=== PATIENT | female | born 1980 | race American Indian/Alaskan Native ===

== ENCOUNTER 2017-09-07 16:54 | Emergency (ER) | payer OTHER ==
[2017-09-07 17:32] VITALS: TEMP 98
[2017-09-07 18:54] LABS: BASO # 0.02 K/mm3 (0.0-2.0); BASO % 0.2 % (0.0-3.0); EOS # 0.7 (0.0-0.7); EOS % 7.5 % (1.5-5.0); GRAN # 5.1 (1.4-6.5); GRAN % 53.9 % (50.0-68.0); HEMOGLOBIN 10.1 g/dL (12.0-16.0); LYMPH # 3.1 (1.2-3.4); MEAN CORPUSCULAR HEMOGLOBIN 23.7 pg (25.0-35.0); MEAN CORPUSCULAR HGB CONC 30.7 g/dl (31.0-37.0); MEAN PLATELET VOLUME 9.2 fl (7.0-11.0); MONO # 0.5 (0.1-0.6); MONO % 5.4 % (1.0-6.0); RBC 4.27 10^6/uL (3.5-6.1); RED CELL DISTRIBUTION WIDTH 15.7 % (11.5-14.5); WHITE BLOOD COUNT 9.5 10^3/ul (4.5-11.0)
[2017-09-07 19:02] LABS: ALB/GLOB RATIO 1.3 (1.1-1.8); ALBUMIN 4.3 g/dL (3.0-4.8); ALT/SGPT 31 U/L (7-56); AST/SGOT 37 U/L (14-36); BLOOD UREA NITROGEN 9 mg/dL (7-21); CALCIUM 9.2 mg/dL (8.4-10.5); GFR AFRICAN-AMERICAN > 60; GFR NON-AFRICAN AMERICAN > 60
[2017-09-07 19:12] LABS: URINE BILIRUBIN NEGATIVE (NEGATIVE); URINE BLOOD TRACE-LYSED (NEGATIVE); URINE GLUCOSE (UA) NEGATIVE (NEGATIVE); URINE LEUKOCYTE ESTERASE NEGATIVE Leu/uL (NEGATIVE); URINE PROTEIN NEGATIVE mg/dL (<30 mg/dL); URINE UROBILINOGEN 0.2 E.U./dL (<1 E.U./dL)
[2017-09-07 19:13] LABS: URINE APPEARANCE CLEAR (CLEAR); URINE COLOR YELLOW (YELLOW)
[2017-09-07 19:14] LABS: B-TYPE NATRIURETIC PEPTIDE 88.8 pg/mL (0-450); TROPONIN I < 0.01 ng/mL
[2017-09-07 19:17] LABS: URINE EPITHELIAL CELLS 0 - 2 /hpf (0-5); URINE RBC NEGATIVE /hpf (0-2); URINE WBC NEGATIVE /hpf (0-6)
--- NOTE | 2017-09-07 21:00 | ED PDOC ---
Arrival/HPI - General Chief Complaint: Shortness Of Breath Time Seen by Provider: 09/07/17 17:01 Historian: Patient - History of Present Illness Narrative History of Present Illness (Text): 09/07/17 20:57 37 year old female presents to the Emergency department from an urgent care to rule out pulmonary embolism. 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 The procedure was a same-day procedure and the patient was intubated for the duration of the procedure. Patient denies any fever, chills, cough, nausea, vomiting, diarrhea, urinary symptoms, back pain, neck pain, headache, dizziness, or any other complaints. Time/Duration: < week (2 days) Symptom Onset: Gradual Symptom Course: Unchanged Context: Other (patient came to Emergency department from urgent care) Past Medical History - Provider Review Nursing Documentation Reviewed: Yes - Infectious Disease Hx of Infectious Diseases: None - Psychiatric Hx Substance Use: No Family/Social History - Physician Review Nursing Documentation Reviewed: Yes Family/Social History: Unknown Family HX Smoking Status: Never Smoked Hx Alcohol Use: No Hx Substance Use: No Allergies/Home Meds Allergies/Adverse Reactions: Allergies acetaminophen [From Percocet] Allergy (Verified 09/07/17 17:16) VOMITING oxycodone [From Percocet] Allergy (Verified 09/07/17 17:16) VOMITING Review of Systems - Physician Review All systems were reviewed & negative as marked: Yes - Review of Systems Constitutional: absent: Fevers, Night Sweats Respiratory: SOB. absent: Cough Cardiovascular: Chest Pain Gastrointestinal: absent: Diarrhea, Nausea, Vomiting Genitourinary Female: absent: Dysuria Musculoskeletal: absent: Back Pain, Neck Pain Neurological: absent: Headache, Dizziness Physical Exam Vital Signs Reviewed: Yes Vital Signs Temp Pulse Resp BP Pulse Ox 09/07/17 21:00 66 18 145/86 100 09/07/17 17:45 20 09/07/17 17:31 98.0 F 69 18 146/81 99 Temperature: Afebrile Blood Pressure: Normal Pulse: Regular Respiratory Rate: Normal Appearance: Positive for: Well-Appearing, Non-Toxic, Comfortable Pain Distress: None Mental Status: Positive for: Alert and Oriented X 3 - Systems Exam Head: Present: Atraumatic, Normocephalic Pupils: Present: PERRL Extroacular Muscles: Present: EOMI Conjunctiva: Present: Normal Mouth: Present: Moist Mucous Membranes Neck: Present: Normal Range of Motion Respiratory/Chest: Present: Clear to Auscultation, Good Air Exchange. No: Respiratory Distress, Accessory Muscle Use Cardiovascular: Present: Regular Rate and Rhythm, Normal S1, S2. No: Murmurs Abdomen: No: Tenderness, Distention, Peritoneal Signs Back: Present: Normal Inspection Upper Extremity: Present: Normal Inspection. No: Cyanosis, Edema Lower Extremity: Present: Normal Inspection. No: Edema Neurological: Present: GCS=15, CN II-XII Intact, Speech Normal Skin: Present: Warm, Dry, Normal Color. No: Rashes Psychiatric: Present: Alert, Oriented x 3, Normal Insight, Normal Concentration Medical Decision Making ED Course and Treatment: 09/07/17 21:02 Impression: 37 year old female presents to the Emergency department complaining of chest pain and shortness of breath. Plan: -- Angio chest PE protocol CT scan -- Chest xray -- EKG -- Urinalysis -- Labs -- Reassess and disposition Progress Notes: - Lab Interpretations Lab Results: 09/07/17 18:30 09/07/17 18:30 Lab Results 09/07/17 19:04: Urine Color Yellow, Urine Appearance Clear, Urine pH 7.0, Ur Specific [place] <= 1.005, Urine Protein Negative, Urine Glucose (UA) Negative, Urine Ketones Negative, Urine Blood Trace-lysed H, Urine Nitrate Negative, Urine Bilirubin Negative, Urine Urobilinogen 0.2, Ur Leukocyte Esterase Negative , Urine RBC Negative, Urine WBC Negative, Ur Epithelial Cells 0 - 2 09/07/17 18:30: Sodium 142, Potassium 4.1, Chloride 103, Carbon Dioxide 27, Anion Gap 17, BUN 9, Creatinine 0.6 L, Est GFR ( Amer) > 60, Est GFR (Non -Af Amer) > 60, Random Glucose 88, Calcium 9.2, Magnesium 2.1, Total Bilirubin 0.2, AST 37 H, ALT 31, Alkaline Phosphatase 87, Lactate Dehydrogenase 404, Total Creatine Kinase 113, Troponin I < 0.01, NT-Pro-B Natriuret Pep 88.8, Total Protein 7.4, Albumin 4.3, Globulin 3.2, Albumin/Globulin Ratio 1.3 09/07/17 18:30: WBC 9.5, RBC 4.27, Hgb 10.1 L, Hct 32.9 L, MCV 77.0 L, MCH 23.7 L, MCHC 30.7 L, RDW 15.7 H, Plt Count 326, MPV 9.2, Gran % 53.9, Lymph % (Auto) 33.0, [place] % (Auto) 5.4, Eos % (Auto) 7.5 H, Baso % (Auto) 0.2, Gran # 5.10, Lymph # (Auto) 3.1, [place] # (Auto) 0.5, Eos # (Auto) 0.7, Baso # (Auto) 0.02 - RAD Interpretation Narrative RAD Interpretations (Text): 09/07/2017 21:34 CT Angiography Chest With Intravenous Contrast FINDINGS: Limitations: Motion artifact - mild. Pulmonary arteries: No definite pulmonary embolism. Aorta: No aneurysm. No dissection. Lungs: No consolidation. Pleural space: No significant effusion. No pneumothorax. Heart: Mild cardiomegaly. No significant pericardial effusion. Mediastinum: Small hiatal hernia. Bones/joints: No acute fracture. Soft tissues: Unremarkable. Lymph nodes: No pathologically enlarged lymph nodes. IMPRESSION: 1. No definite CT evidence of pulmonary embolism. 2. Incidental/non-acute findings are described above. Radiology Orders: 09/07/17 17:18 CHEST PORTABLE [RAD] Stat 09/07/17 17:19 ANGIO CHEST PE PROTOCOL [CT] Stat - EKG Interpretation EKG Interpretation (Text): 09/07/17 17:17 EKG: Ordered, reviewed, and independently interpreted the EKG. Rate : 72 BPM Rhythm : NSR Interpretation : RBBB. Normal axis, normal intervals. Interpreted by ED Physician: Yes Type: 12 lead EKG - Scribe Statement The provider has reviewed the documentation as recorded by the Daniela Carr Provider Scribe Attestation: All medical record entries made by the Scribkandace were at my direction and personally dictated by me. I have reviewed the chart and agree that the record accurately reflects my personal performance of the history, physical exam, medical decision making, and the department course for this patient. I have also personally directed, reviewed, and agree with the discharge instructions and disposition. Disposition/Present on Arrival - Present on Arrival Any Indicators Present on Arrival: No History of DVT/PE: No History of Uncontrolled Diabetes: No Urinary Catheter: No History of Decub. Ulcer: No History Surgical Site Infection Following: None - Disposition Have Diagnosis and Disposition been Completed?: Yes Diagnosis: Acute costochondritis Disposition Time: 21:30 Patient Problems: Current Active Problems Problem Status Onset Acute costochondritis Acute Condition: GOOD Discharge Instructions (ExitCare): Costochondritis (DC) Additional Instructions: Thank you for letting us take care of you today. The emergency medical care you received today was directed at your acute symptoms. If you were prescribed any medication, please fill it and take as directed. It may take several days for your symptoms to resolve. Return to the Emergency Department if your symptoms worsen, do not improve, or if you have any other problems. Please contact your doctor or call one of the physicians/clinics you have been referred to that are listed on the Patient Visit Information form that is included in your discharge packet. Bring any paperwork you were given at discharge with you along with any medications you are taking to your follow up visit. Our treatment cannot replace ongoing medical care by a primary care provider (PCP) outside of the emergency department. Thank you for allowing the [facility] team to be part of your care today. Follow up with your doctor in 2-3 days for re-evaluation and further management. Prescriptions: Ibuprofen [Motrin] 600 mg PO Q6 PRN #20 tab PRN Reason: Pain, Moderate (4-7) Referrals: PCP,NO [Primary Care Provider] - Follow up with primary Forms: [facility] (Sami)
--- NOTE | 2017-09-07 21:34 | CT ---
EXAM: CT Angiography Chest With Intravenous Contrast CLINICAL HISTORY: 37 years old, female; Signs and symptoms; Shortness of breath; Prior surgery; Surgery date: Post-operative (0-2 days); Surgery type: Hysteroscopy - polyp removal; Additional info: R/O pe TECHNIQUE: Axial computed tomographic angiography images of the chest with intravenous contrast using pulmonary embolism protocol. All CT scans at this facility use one or more dose reduction techniques, viz.: automated exposure control; ma/kV adjustment per patient size (including targeted exams where dose is matched to indication; i.e. head); or iterative reconstruction technique. MIP reconstructed images were created and reviewed. Coronal and sagittal reformatted images were created and reviewed. CONTRAST: 95 mL of OMNI 350 administered intravenously. COMPARISON: DX - CHEST PORTABLE 2017-09-07 19:17 FINDINGS: Limitations: Motion artifact - mild. Pulmonary arteries: No definite pulmonary embolism. Aorta: No aneurysm. No dissection. Lungs: No consolidation. Pleural space: No significant effusion. No pneumothorax. Heart: Mild cardiomegaly. No significant pericardial effusion. Mediastinum: Small hiatal hernia. Bones/joints: No acute fracture. Soft tissues: Unremarkable. Lymph nodes: No pathologically enlarged lymph nodes. IMPRESSION: 1. No definite CT evidence of pulmonary embolism. 2. Incidental/non-acute findings are described above.
[2017-09-07 21:44] VITALS: RESP 18; O2SAT 100
[2017-09-07 22:36] VITALS: BP 142/81; PULSE 65
--- NOTE | 2017-09-08 07:51 | CARD ---
APPROVED REPORT EKG Measurement Heart [id number] <Conclusion> NSR IRBBB
--- NOTE | 2017-09-08 08:15 | RAD ---
HISTORY: SOB COMPARISON: No prior. FINDINGS: LUNGS: No active pulmonary disease. PLEURA: No significant pleural effusion identified, no pneumothorax apparent. CARDIOVASCULAR: Cardiomegaly. No evidence of acute, significant cardiovascular disease. OSSEOUS STRUCTURES: No significant abnormalities. VISUALIZED UPPER ABDOMEN: Normal. OTHER FINDINGS: None. IMPRESSION: Cardiomegaly. No active pulmonary disease.
== END 2017-09-07 21:51 | disposition home or self-care (01) ==
LOC: ED 16:54
DX: M94.0 Chondrocostal junction syndrome [Tietze] (principal)
CPT/HCPCS: 71045; 71275; 80053; 81001; 82550; 83615; 83735; 83880; 84484; 85025; 93005; 99285; Q9967